=== PATIENT | female | born 1955 | race Caucasian/White ===

== ENCOUNTER → 2023-12-01 10:18 | Outpatient (REF) | payer MEDICARE, OTHER, SELFPAY | LOC: HWWDC 10:18 | PROVIDERS: ATTENDING PHYSICIAN Nurse Practitioner Family; FAMILY PHYSICIAN Family Medicine | DX: Z12.31 Encounter for screening mammogram for malignant neoplasm of breast (principal) | CPT/HCPCS: 77063; 77067 ==

== ENCOUNTER → 2024-01-20 06:30 | Day surgery (SDC) | payer MEDICARE, OTHER, SELFPAY | LOC: GI 06:30 | PROVIDERS: ATTENDING PHYSICIAN Internal Medicine Gastroenterology | DX: Z12.11 Encounter for screening for malignant neoplasm of colon (principal); D12.3 Benign neoplasm of transverse colon; D12.5 Benign neoplasm of sigmoid colon; K63.5 Polyp of colon; K57.30 Diverticulosis of large intestine without perforation or abscess without bleeding; K64.8 Other hemorrhoids; Z86.010 Personal history of colon polyps | CPT/HCPCS: 45380; 88305 ==

== ENCOUNTER → 2024-09-15 13:16 | Outpatient (REF) | payer MEDICARE, OTHER, SELFPAY | LOC: HWRAD 13:16 | PROVIDERS: ATTENDING PHYSICIAN Internal Medicine Rheumatology; FAMILY PHYSICIAN Family Medicine | DX: M81.0 Age-related osteoporosis without current pathological fracture (principal) | CPT/HCPCS: 77080 ==

== ENCOUNTER → 2024-12-01 13:12 | Outpatient (REF) | payer MEDICARE, OTHER, SELFPAY | LOC: HWWDC 13:12 | PROVIDERS: ATTENDING PHYSICIAN Nurse Practitioner Family | DX: Z12.31 Encounter for screening mammogram for malignant neoplasm of breast (principal) | CPT/HCPCS: 77063; 77067 ==